=== PATIENT | female | born 1960 | race Caucasian/White ===

== ENCOUNTER → 2020-02-12 | Outpatient (CLI) | payer BC, OTHER ==
[2015-06-19 16:45] VITALS: BP 144/85
[~2020-02-12] MED LIST: PRED20TA PO
--- NOTE | 2020-02-12 09:41 | RAD ---
EXAM: Left foot, 3 views. HISTORY: Pain. COMPARISON: None. FINDINGS: 3 views of the left foot are obtained. There is no fracture, dislocation or subluxation. There is no foreign body. The alignment and joint spaces are unremarkable. There is minimal enthesopathy at the Achilles tendon insertion. IMPRESSION: No acute osseous finding. Electronically signed by: Rosita Wise MD (02/12/2020 9:38 AM) [id number]
== END ==
LOC: DXRAD 09:12
PROVIDERS: ATTEND Podiatrist Foot & Ankle Surgery
DX: M77.52 Other enthesopathy of left foot and ankle (principal); M77.42 Metatarsalgia, left foot
CPT/HCPCS: 73630